=== PATIENT | female | born 1985 | race Two or more races ===

== ENCOUNTER 2024-07-22 05:54 | Emergency (ER) | payer BC, OTHER ==
[~2024-07-22] VITALS: Ht 160 cm; Wt 98.0 kg
[2024-07-22] MEDS ORDERED: NAPR-746 PO (07:31)
[2024-07-22] MEDS ORDERED: CEPH500C PO (07:31)
[2024-07-22] MEDS ORDERED: TRIA0.02 TOP (07:31)
[2024-07-22] MEDS: cefTRIAXone SOD 1,000 MG VL IM ONE (07:34)
[2024-07-22 07:47] VITALS: BP 153/94; PULSE 66; RESP 18; O2SAT 98
== END 2024-07-22 07:55 | disposition home or self-care (01) ==
LOC: ER 05:54
DX: S80.861A Insect bite (nonvenomous), right lower leg, initial encounter (principal); W57.XXXA Bitten or stung by nonvenomous insect and other nonvenomous arthropods, initial encounter; Y93.89 Activity, other specified; Y92.89 Other specified places as the place of occurrence of the external cause; Y99.8 Other external cause status
CPT/HCPCS: 96372; 99283; J0696